=== PATIENT | female | born 1980 | race Caucasian/White ===

== ENCOUNTER 2019-12-16 16:25 | Outpatient (CLI) | payer BC, SELFPAY ==
--- NOTE | ~2019-12-16 | MM_ITS ---
EXAMINATION: MM screening hieu BI w genevieve HISTORY: Baseline screening mammogram TECHNIQUE: Craniocaudal and mediolateral oblique 3-D tomosynthesis images were obtained and synthetic 2-D images were generated. CAD analysis was submitted and interpreted. COMPARISON: None, baseline BREAST PARENCHYMAL COMPOSITION: There are scattered areas of fibroglandular density. FINDINGS: RIGHT BREAST: There is possible architectural distortion middle third of the outer breast cyst apprec iated 7 cm from the nipple. LEFT BREAST: Focal asymmetry is present in the middle third of the upper outer quadrant of the breast . IMPRESSION: 1. Bilateral breast findings as described above. 2. Additional mammographic views and possible breast ultrasound are recommended to evaluate for malig bri and establish a baseline given that this is the first mammographic examination. BI-RADS Category 0: Incomplete: Needs additional imaging evaluation. Reviewed, dictated and finalized at location A. IMPRESSION: 1. Bilateral breast findings as described above. 2. Additional mammographic views and possible breast ultrasound are recommended to evaluate for malignancy and establish a baseline given that this is the fir st mammographic examination. BI-RADS Category 0: Incomplete: Needs additional imaging evaluation.
== END 2019-12-16 16:26 | disposition home or self-care (01) ==
LOC: ANHIMG 16:28
PROVIDERS: PCP Family Medicine; Visit Provider Obstetrics & Gynecology
DX: Z12.31 Encounter for screening mammogram for malignant neoplasm of breast (principal); R92.8 Other abnormal and inconclusive findings on diagnostic imaging of breast
CPT/HCPCS: 77063; 77067

== ENCOUNTER 2020-01-13 12:38 | Outpatient (CLI) | payer BC, SELFPAY ==
--- NOTE | ~2020-01-13 | MMUS_ITS ---
EXAMINATION: MM diagnostic mammo BI, US breast BI limited HISTORY: Left breast focal asymmetry and possible right breast architectural distortion on baseline s creening mammogram TECHNIQUE: Additional 3-D tomosynthesis images of the breasts were performed and synthetic 2-D images were generated. CAD analysis was submitted and interpreted. High resolution limited bilateral breast ultrasound was performed. COMPARISON: 12/16/2019 FINDINGS: MAMMOGRAPHIC FINDINGS: No persistent suspicious findings are identified with spot compression views of the breasts. There is no suspicious mass, architectural distortion, or calcification. ULTRASOUND: There is no evidence of focal abnormal solid or cystic lesion in the vicinity of the mammographic fin dings in question in either breast. A 6 mm cyst is noted at the 11:00 position in the right breast 1 cm from the nipple. IMPRESSION: 1. No mammographic or sonographic evidence of malignancy. 2. Recommend routine screening mammography in one year. BI-RADS Category 2: Benign finding(s). Reviewed, dictated and finalized at location A. IMPRESSION: 1. No mammographic or sonographic evidence of malignancy. 2. Recommend routine screening mammography in one year. BI-RADS Category 2: Benign finding(s).
== END 2020-01-13 12:39 | disposition home or self-care (01) ==
LOC: ANHIMG 12:39
PROVIDERS: PCP Family Medicine; Visit Provider Obstetrics & Gynecology
DX: R92.8 Other abnormal and inconclusive findings on diagnostic imaging of breast (principal)
CPT/HCPCS: 76642; 77066

== ENCOUNTER 2020-06-16 10:32 | Outpatient (NON) | payer BC, SELFPAY ==
[2020-06-16 22:32] LABS: SARS-CoV-2 RNA PCR Negative
== END 2020-06-16 10:33 ==
LOC: ANHCOVIDDT 10:34
PROVIDERS: Visit Provider Physician Assistant
DX: R43.2 Parageusia (principal); Z20.828 Contact with and (suspected) exposure to other viral communicable diseases
CPT/HCPCS: 87635; C9803; U0003

== ENCOUNTER 2020-09-07 17:45 | Outpatient (CLI) | payer BC, SELFPAY | END 2020-09-07 17:46 | disposition home or self-care (01) | LOC: ANHCOVIDVC 17:45 | PROVIDERS: PCP Obstetrics & Gynecology | DX: Z23 Encounter for immunization (principal) | CPT/HCPCS: 0001A; 91300 ==

== ENCOUNTER 2020-09-28 17:47 | Outpatient (CLI) | payer BC, SELFPAY | END 2020-09-28 17:48 | disposition home or self-care (01) | LOC: ANHCOVIDVC 17:47 | PROVIDERS: PCP Obstetrics & Gynecology | DX: Z23 Encounter for immunization (principal) | CPT/HCPCS: 0002A; 91300 ==

== ENCOUNTER 2020-12-17 07:41 | Outpatient (CLI) | payer BC, SELFPAY ==
--- NOTE | ~2020-12-17 | MM_ITS ---
EXAMINATION: MM screening [facility] BI w genevieve HISTORY: Screening mammogram TECHNIQUE: Craniocaudal and mediolateral oblique 3-D tomosynthesis images were obtained and synthetic 2-D images were generated. CAD analysis was submitted and interpreted. COMPARISON: 01/13/2020, 12/16/2019 BREAST PARENCHYMAL COMPOSITION: There are scattered areas of fibroglandular density. FINDINGS: There is no evidence of suspicious mass, calcification, or architectural distortion to sugg est malignancy in either breast. There has been no suspicious interval change. IMPRESSION: 1. No mammographic evidence of malignancy. 2. Recommend routine screening mammography in one year. BI-RADS Category 1: Negative Reviewed, dictated and finalized at location A.
== END 2020-12-17 07:42 | disposition home or self-care (01) ==
LOC: ANHIMG 07:44
PROVIDERS: PCP Obstetrics & Gynecology; Visit Provider Obstetrics & Gynecology
DX: Z12.31 Encounter for screening mammogram for malignant neoplasm of breast (principal)
CPT/HCPCS: 77063; 77067

== ENCOUNTER 2022-05-18 17:07 | Outpatient (CLI) | payer BC, SELFPAY ==
--- NOTE | ~2022-05-18 | MM_ITS ---
EXAMINATION: MM screening hieu BI w genevieve HISTORY: Screening TECHNIQUE: Craniocaudal and mediolateral oblique 3-D tomosynthesis images were obtained and synthetic 2-D images were generated. CAD analysis was submitted and interpreted. COMPARISON: Comparison to multiple prior studies sequentially, with oldest reviewed study dated 12/15. BREAST PARENCHYMAL COMPOSITION: Breast composed of scattered areas of fibroglandular density FINDINGS: There is a new 7 x 4 mm mass in the upper outer quadrant, middle third. The left breast is stable without evidence for malignancy. IMPRESSION: 1. New right breast mass, upper outer quadrant, middle third. 2. Additional mammographic views and possible breast ultrasound are recommended. BI-RADS Category 0: Incomplete: Needs additional imaging evaluation. Reviewed, dictated and finalized at location A. 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 New right breast mass, upper outer quadrant, middle third. 2. Additional mammographic views and possible breast ultrasound are recommended . BI-RADS Category 0: Incomplete: Needs additional imaging evaluation.
== END 2022-05-18 17:08 | disposition home or self-care (01) ==
PROVIDERS: PCP Obstetrics & Gynecology; Visit Provider Nurse Practitioner
DX: Z12.31 Encounter for screening mammogram for malignant neoplasm of breast (principal); R92.8 Other abnormal and inconclusive findings on diagnostic imaging of breast
CPT/HCPCS: 77063; 77067

== ENCOUNTER 2022-06-13 11:21 | Outpatient (CLI) | payer BC, SELFPAY ==
--- NOTE | ~2022-06-13 | MMUS_ITS ---
EXAMINATION: MM diagnostic hieu RT w genevieve, US breast RT limited HISTORY: Follow-up right breast mass TECHNIQUE: Additional 3-D tomosynthesis images of the right breast were performed and synthetic 2-D i mages were generated. CAD analysis was submitted and interpreted. High resolution Limited right breas t ultrasound was performed. COMPARISON: Comparison to multiple prior studies sequentially, with oldest reviewed study dated 12/15. BREAST PARENCHYMAL COMPOSITION: Breast composed of scattered areas of fibroglandular density FINDINGS: MAMMOGRAPHIC FINDINGS: There is a bilobed mass in the lower outer quadrant of the right breast, middle third.. No suspicious calcifications or architectural distortion. ULTRASOUND: Limited right breast ultrasound: At 8:00, 5 cm from the nipple there is a hypoechoic mass with low le willi internal echoes, antiparallel configuration, no significant posterior features or internal vascul arity. There are some angular margins. This mass measures 4 x 4 x 4 mm and likely corresponds to the mammographic abnormality. IMPRESSION: 1. Antiparallel 4 mm mass of the right breast at 8:00, 5 cm from the nipple. 2. Ultrasound-guided right breast biopsy recommended. BI-RADS category 4, suspicious findings. Reviewed, dictated and finalized at location B. NSED PRACTICAL NURSE CLINIC NURSE IMPRESSION: 1. Antiparallel 4 mm mass of the right breast at 8:00, 5 cm from the nipple. 2. Ultrasound-guided right breast biopsy recommended. BI-RADS category 4, suspicious findings.
== END 2022-06-13 11:22 | disposition home or self-care (01) ==
PROVIDERS: PCP Nurse Practitioner; Visit Provider Obstetrics & Gynecology Gynecology
DX: R92.8 Other abnormal and inconclusive findings on diagnostic imaging of breast (principal)
CPT/HCPCS: 76642; 77061; 77065; G0279

== ENCOUNTER 2022-07-06 10:11 | Outpatient (CLI) | payer BC, SELFPAY ==
--- NOTE | ~2022-07-06 | US_ITS ---
EXAMINATION: US_BCARIMG_US DATE: 07/06/2022 11:32 INDICATION: Indeterminate mass at the 8:00 location of the right breast TECHNIQUE: The procedure including the risks and benefits was discussed with the patient. Risks discu ssed included bleeding and infection. A timeout was performed to verify the patient's name, date of , and procedure to be performed. The skin overlying the right breast was prepped and draped in usual sterile fashion. Lidocaine was used for superficial anesthesia. Lidocaine with epinephrine was used for deep anesthesia. An 18-gauge spinal needle was advanced towards the mass using ultrasound gu idance. Less than 1 cc of fluid were aspirated from the mass. The mass was no longer visible after as piration. FINDINGS: Ultrasound images demonstrate aspiration of the right breast mass. IMPRESSION: 1. Successful ultrasound-guided right breast aspiration. Reviewed, dictated and finalized at location A. DEVELOPER
== END 2022-07-06 10:12 | disposition home or self-care (01) ==
PROVIDERS: PCP Nurse Practitioner; Visit Provider Surgery
DX: N63.10 Unspecified lump in the right breast, unspecified quadrant (principal)
CPT/HCPCS: 19000; 76942

== ENCOUNTER 2022-08-02 15:55 | Outpatient (CLI) | payer BC, SELFPAY ==
[2022-08-02 16:55] LABS: Kit Draw Collected
== END 2022-08-02 15:56 | disposition home or self-care (01) ==
LOC: ANHGOSHLAB 15:57
PROVIDERS: PCP Family Medicine; Visit Provider Family Medicine
DX: Z00.00 Encounter for general adult medical examination without abnormal findings (principal); E66.9 Obesity, unspecified
CPT/HCPCS: 36415

== ENCOUNTER 2023-06-27 13:32 | Outpatient (CLI) | payer BC, SELFPAY ==
--- NOTE | ~2023-06-27 | MM_ITS ---
EXAMINATION: MM screening hieu BI w genevieve HISTORY: Screening mammogram TECHNIQUE: Craniocaudal and mediolateral oblique 3-D tomosynthesis images were obtained and synthetic 2-D images were generated. CAD analysis was submitted and interpreted. COMPARISON: 06/13/2022 diagnostic right mammogram and limited right breast ultrasound examination 05/18/2022, 12/17/2020 bilateral screening mammogram examinations BREAST PARENCHYMAL COMPOSITION: There are scattered areas of fibroglandular density. FINDINGS: There is no evidence of suspicious mass, calcification, or architectural distortion to sugg est malignancy in either breast. There has been no suspicious interval change. IMPRESSION: 1. No mammographic evidence of malignancy. 2. Recommend routine screening mammography in one year. BI-RADS Category 1: Negative Reviewed, dictated and finalized at location A. 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
== END 2023-06-27 13:33 | disposition home or self-care (01) ==
LOC: ANHIMG 13:36
PROVIDERS: PCP Family Medicine; Visit Provider Nurse Practitioner
DX: Z12.31 Encounter for screening mammogram for malignant neoplasm of breast (principal)
CPT/HCPCS: 77063; 77067

== ENCOUNTER 2024-06-30 15:33 | Outpatient (CLI) | payer BC, SELFPAY ==
--- NOTE | ~2024-06-30 | MM_ITS ---
EXAMINATION: MM screening [facility] BI w genevieve HISTORY: Screening mammogram TECHNIQUE: Craniocaudal and mediolateral oblique 3-D tomosynthesis images were obtained and synthetic 2-D images were generated. CAD analysis was submitted and interpreted. COMPARISON: 06/27/2023, 05/18/2022, 12/17/2020 BREAST PARENCHYMAL COMPOSITION:Not Dense. There are scattered areas of fibroglandular density. FINDINGS: No suspicious mass, calcification, or architectural distortion are identified in either makenna ast to suggest malignancy. There has been no suspicious interval change. IMPRESSION: No mammographic evidence of malignancy. Recommend routine screening mammography in one year. BI-RADS Category 1: Negative Reviewed, dictated and finalized at location . WHAT SIZER
== END 2024-06-30 15:34 | disposition home or self-care (01) ==
PROVIDERS: PCP Family Medicine; Visit Provider Family Medicine
DX: Z12.31 Encounter for screening mammogram for malignant neoplasm of breast (principal)
CPT/HCPCS: 77063; 77067

== ENCOUNTER 2024-12-31 08:06 | Outpatient (CLI) | payer BC, SELFPAY ==
--- NOTE | ~2024-12-31 | US_ITS ---
Limited Abdominal Sonogram: Real-time sonographic imaging of the right upper quadrant was performed. Clinical History: Abnormal LFTs Findings: The liver appears echogenic, with no evidence of mass lesion or bile duct dilatation. Main portal vein demonstrates normal direction of flow. The gallbladder is well distended, and appears no rmal with no evidence of gallstone or wall thickening. The common bile duct measures 5 mm. The visua lized pancreas, aorta, and IVC are unremarkable. Impression: Diffuse fatty infiltration of the liver. Reviewed, dictated and finalized at location M. Impression: Diffuse fatty infiltration of the liver.
== END 2024-12-31 08:07 | disposition home or self-care (01) ==
LOC: GOSHIMG 08:06
PROVIDERS: PCP Family Medicine; Visit Provider Family Medicine
DX: R94.5 Abnormal results of liver function studies (principal); K76.0 Fatty (change of) liver, not elsewhere classified; E11.9 Type 2 diabetes mellitus without complications; E66.01 Morbid (severe) obesity due to excess calories
CPT/HCPCS: 76705

== ENCOUNTER 2025-02-18 09:30 | Outpatient (RCR) | payer BC, SELFPAY ==
[2024-12-11 09:32] VITALS: BMI 49.8
[2024-12-11 09:35] VITALS: BMI 49.8
[2025-02-18 09:35] VITALS: BMI 47.5
[2025-02-18 09:36] VITALS: BMI 47.5
--- NOTE | 2025-02-18 10:35 | PCDIET ---
MNT Consult completed 12/11/24. Follow up 02/18/25
== END 2025-03-08 23:59 | disposition home or self-care (01) ==
LOC: ANHDMC 09:30
PROVIDERS: PCP Family Medicine; Visit Provider Family Medicine
DX: E11.65 Type 2 diabetes mellitus with hyperglycemia (principal); Z71.89 Other specified counseling
CPT/HCPCS: 97802; 97803; G0108

== ENCOUNTER 2025-05-14 13:30 | Outpatient (RCR) | payer BC, SELFPAY ==
[2025-04-02 13:28] VITALS: BMI 47.1
[2025-04-02 13:30] VITALS: BMI 47.1
--- NOTE | 2025-04-02 15:08 | PCDIET ---
04/02/2025: Pt continues to follow up for MNT appropriately. Consult and initial notes in [id number] today's notes in [facility]: [id number] Thank you
[2025-05-14 13:40] VITALS: BMI 46.7
[2025-05-14 13:50] VITALS: BMI 46.7
--- NOTE | 2025-05-14 15:12 | PCDIET ---
05/14/25: Last MNT follow up for 2024 completed. See note in Nurse/Allied Health -> Nutrition. She is making various appropriate dietary and activity adjustments. She will benefit from and is open to MNT follow up in 2025. We discussed new MNT follow up referral required for insurance purposes.
== END 2025-06-29 12:47 | disposition home or self-care (01) ==
LOC: ANHDMC 13:30
PROVIDERS: PCP Family Medicine; Visit Provider Family Medicine
DX: E11.65 Type 2 diabetes mellitus with hyperglycemia (principal); Z71.3 Dietary counseling and surveillance; Z71.89 Other specified counseling
CPT/HCPCS: 97803; G0108

== ENCOUNTER 2025-06-01 13:40 | Emergency (ER) | payer BC, SELFPAY ==
--- NOTE | ~2025-06-01 | XR_ITS ---
EXAMINATION: XR chest 2V 06/01/2025 14:20 INDICATION: Cough for 5 days PROCEDURE: 2 view chest COMPARISON: 09/09/2014 FINDINGS: The lungs are clear. The cardiomediastinal silhouette is within normal limits. There are no pleural effusions. There is no pneumothorax suspected. IMPRESSION: 1: NO ACUTE CARDIOPULMONARY DISEASE. Reviewed, dictated and finalized at location I. 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
[2025-06-01 13:58] VITALS: BP 133/85; PULSE 90; RESP 16; TEMP 36.1; O2SAT 100
--- NOTE | 2025-06-01 14:21 | ED.URI ---
HPI - URI/Sore Throat General Chief Complaint: Upper Respiratory Infection Stated Complaint: Sore Throat/Cough Time Seen by Provider: 06/01/25 13:57 Source: patient and RN notes reviewed Mode of arrival: ambulatory Limitations: no limitations History of Present Illness HPI Narrative: 44-year-old female patient presents today complaining a 5 day history of sore throat, cough, nasal congestion, sweats, chills, decreased taste. States the sore throat and cough have been slightly improving. Denies shortness of breath. She has tried DayQuil, NyQuil, and Mucinex drops with some mild improvement. Denies history of COPD. States she had a brief episode of asthma a few years ago that lasted about a year and a half before fully resolving. She is a former smoker and quit over 15 years ago. Related Data Home Medications ?Medication ?Instructions ?Recorded ?Confirmed ?Last Taken ?Type levocetirizine 5 mg tablet (Xyzal) 5 mg PO DAILY 06/19/22 06/01/25 Unknown History fluticasone propionate 50 1 spray intranasal BID PRN nasal 08/02/22 06/01/25 Unknown History mcg/actuation nasal congestion spray,suspension norethindrone 1.5 mg-ethinyl 1 tablet PO DAILY 08/02/22 06/01/25 Unknown History estradiol 30 mcg(21)/iron 75 mg(7) tablet (Blisovi Fe 1.5/30 (28)) mecobalamin (vitamin B12) 1,000 2,000 mcg PO DAILY 05/27/25 06/01/25 Unknown History mcg lozenges Allergies Allergy/AdvReac Type Severity Reaction Status Date / Time amoxicillin Allergy Unknown Hives Verified 06/01/25 13:50 Penicillins Allergy Unknown Hives Verified 06/01/25 13:50 Sulfa (Sulfonamide Allergy Unknown Nausea Verified 06/01/25 13:50 Antibiotics) sulfanilamide Allergy Unknown Nausea Verified 06/01/25 13:50 PMFSH Past Medical History Medical History Breast mass, right 2021 breast cyst aspiration Asthma Surgical History Surgical History No history of previous surgery Family History Family History Other FH: alcoholism FH: asthma FH: congenital heart problem FH: depression FH: diabetes mellitus FH: stroke FH: thyroid condition Social History Social History Smoking packs per day: 0.25 Smoking cigarettes per day: 5.0 Years smoked: 9 Smoking pack-years: 2.25 Smoking status: Former smoker Second hand tobacco smoke exposure: No Smoking end date: 07/02/07 Alcohol intake: never Substance use: never Substance use type: does not use Lack of Transportation: No Lack of Food: Never True Current Housing: I Have Housing Concerned About Future Housing: No Difficulty Paying Gas/Electric Bills: No Difficulty Paying for Meds: No Currently Unemployed: No Difficulty w/ Childcare or Family Care: No Living arrangements: alone Occupation/Education: occupation Additional occupation/education comments: [employer] Gender identity (if verbalized by the patient): Female Spiritual care concerns: No Comments At time of signature, I have reviewed and agree with nursing past medical, surgical, social and family history unless otherwise noted. Please see nursing chart for further information. There is no relevant family history pertinent to the presenting complaint Exam Narrative: GENERAL: Mildly ill-appearing, well-nourished, and in no acute distress. HEAD: Normocephalic, atraumatic. EYES: EOMI. No redness or drainage. Conjunctivae normal. ENT: Mucous membranes pink and moist. Nares congested with rhinorrhea. TMs normal bilaterally. Throat mildly erythematous without edema or exudate. Uvula midline. NECK: Normal AROM. Supple. No lymphadenopathy. CHEST: No respiratory distress. Rhonchi noted throughout. HEART: Regular rate and rhythm. No murmur appreciated. EXTREMITIES: Normal range of motion. No edema. SKIN: Warm, dry, no rash. Capillary refill normal. Normal skin turgor. NEURO: No focal deficits. Alert and oriented x3. Gait steady. PSYCH: Normal affect. No signs of depression or anxiety. Course Course Level of Care: Express Care Visit Vital Signs Vital signs: Vital Signs Temperature 96.9 F L 06/01/25 13:58 Pulse Rate 90 06/01/25 13:58 Respiratory Rate 16 06/01/25 13:58 Blood Pressure 133/85 06/01/25 13:58 Pulse Oximetry 100 06/01/25 13:58 Temperature 96.9 F L 06/01/25 13:58 Pulse Rate 90 06/01/25 13:58 Respiratory Rate 16 06/01/25 13:58 Blood Pressure 133/85 06/01/25 13:58 Pulse Oximetry 100 06/01/25 13:58 Reviewed MDM - URI/Sore Throat MDM Narrative Medical decision making narrative: 44-year-old female patient presents today complaining a 5 day history of sore throat, cough, nasal congestion, sweats, chills, decreased taste. States the sore throat and cough have been slightly improving. Denies shortness of breath. She has tried DayQuil, NyQuil, and Mucinex drops with some mild improvement. Denies history of COPD. States she had a brief episode of asthma a few years ago that lasted about a year and a half before fully resolving. She is a former smoker and quit over 15 years ago.. Upon exam, patient is mildly ill appearing with nasal congestion, rhinorrhea, and mildly erythematous throat. She also has some rhonchi upon auscultation. Chest x-ray negative. Symptoms likely viral in etiology. Discussed [id number] medication use and duration of illness. No prescription medications indicated at this time. Anticipatory guidance given. Vital signs stable. Patient agrees with plan. Anticipatory guidance and ED precautions given. Differential Diagnosis Differential diagnosis: Likely upper respiratory infection, sinusitis, viral infection, bronchitis and other (Pneumonia) Imaging Data Radiologist's impression: ITS Impressions Chest X-Ray 06/01/25 14:28 IMPRESSION: 1: NO ACUTE CARDIOPULMONARY DISEASE. Critical Care Time Critical Care Time Critical Care Time: No Discharge Plan Discharge Clinical Impression: Upper respiratory infection Qualifiers: URI type: unspecified URI Qualified Code(s): J06.9 - Acute upper respiratory infection, unspecified Patient Disposition: Home Condition: Stable Instructions: Upper Respiratory Infection (DC) Additional Instructions: Your chest x-ray is negative today. Your symptoms are likely due to a viral illness, which is not treated with antibiotics. Virus symptoms can last for up to 7-10days. Take Tylenol or ibuprofen for pain or fever. Continue OTC medication as needed. Rest and stay hydrated. Follow up with your PCP in 7 days if symptoms are not improving. Go to the ER immediately if you develop shortness of breath, difficulty swallowing, or any other concerning symptoms. Patient Language: Palestinian Prescriptions: No Action levocetirizine [Xyzal] 5 mg tablet 5 mg PO DAILY mecobalamin (vitamin B12) 1,000 mcg lozenge 2,000 mcg PO DAILY Rx Instructions: allow to dissolve in mouth OR may chew lightly before swallowing norethindrone-e.estradiol-iron [Blisovi Fe 1.5/30 (28)] 1.5 mg-30 mcg (21)/75 mg (7) tablet 1 tablet PO DAILY fluticasone propionate 50 mcg/actuation spray,suspension 1 spray intranasal BID PRN (Reason: nasal congestion) Rx Instructions: administer into each nostril losartan 50 mg tablet 50 mg PO DAILY Qty: 90 1RF (DME) blood-glucose meter [FreeStyle [place] Lite] Kit See Rx Instructions .Route Qty: 1 1RF Rx Instructions: As directed . q day and prn symptoms of hypoglycemia metformin 500 mg tablet extended release 24 hr 1,000 mg PO DAILY Qty: 180 3RF Rx Instructions: after breakfast rosuvastatin 20 mg tablet 20 mg PO DAILY Qty: 90 3RF Follow-up/Referrals: Nancy Castle MD [Primary Care Provider, Family Practice] Time of Disposition: 14:38
== END 2025-06-01 14:42 | disposition home or self-care (01) ==
PROVIDERS: Emergency Provider Nurse Practitioner; PCP Family Medicine
DX: J06.9 Acute upper respiratory infection, unspecified (principal); Z87.891 Personal history of nicotine dependence
CPT/HCPCS: 71046; 99213; G0463